=== PATIENT | male | born 1955 | race Caucasian/White ===

== ENCOUNTER 2025-03-06 12:31 | Emergency (ER) | payer MEDICARE, OTHER, SELFPAY ==
[2025-03-06] VITALS (9 sets, daily range): BP systolic 130–165; BP diastolic 73–122; BMI 33.6
--- NOTE | 2025-03-06 12:55 | ED.GENMED ---
History of Present Illness
General
Chief Complaint: Cardiac Symptoms
Time Seen by Provider: 03/06/25 12:55
History of Present Illness
History of Present Illness:
FOCUSED PAST MEDICAL HISTORY
- High blood pressure, hyperlipidemia
REVIEW OF OLD RECORDS
- I reviewed records, the patient had a colonoscopy in 2011
- The patient had a rhythm strip to Feb and at that time patient was in sinus rhythm
Note:
CHIEF COMPLAINT(S)
Atrial fibrillation detected during a pre-procedural evaluation for a cervical steroid injection.
HISTORY OF PRESENT ILLNESS
The patient is a 69-year-old male with a history of high blood pressure and hyperlipidemia, presenting to the emergency department following the detection of atrial fibrillation. The patient was initially scheduled for a steroid injection in the
neck due to chronic neck pain and radiating pain to the hands, ongoing for approximately 14 months. During the pre-procedural assessment at the surgical center, a heart rate of 150 beats per minute and blood pressure of 155/110 mmHg were noted,
leading to the postponement of the procedure. The patient was advised to contact his primary care physician and was subsequently directed to the emergency department for further evaluation.
The patient did not take his morning dose of Losartan prior to the appointment, later administering it at home at 10:50 AM, after being instructed that it was safe. He denies any concurrent coronary artery disease. Current medications include
Losartan, Atorvastatin (Lipitor), and Fluoxetine (Prozac). The patient has no history of chest pain, pressure, palpitations, or other acute cardiac symptoms.
PAST MEDICAL AND SURGICAL HISTORY
The patient has a history of hypertension and hyperlipidemia; however, no past surgeries were discussed.
PHYSICAL EXAM
- General: Well appearing in no distress
- HEENT: Moist oral mucosa
- Cardiovascular: No murmurs, tachycardic heart rate, irregular rhythm, No chest wall tenderness
- Pulmonary: No respiratory distress, breath sounds are clear and equal
- Abdomen: Soft with no peritoneal signs, no tenderness
- Neurologic: Excellent strength all extremities, no coordination deficits
- Psychiatric: Appropriate mental status, normal insight and judgement
- Extremities: Nontender, no edema, moves all extremities equally
- Skin: No rash, no lesions
CHRONIC MEDICAL CONDITIONS SIGNIFICANTLY AFFECTING CARE
- Hypertension
- Hyperlipidemia
PLAN
1. Initiate anticoagulation therapy to mitigate the risk of stroke related to atrial fibrillation.
2. Consider initiation of a beta-joanna to control heart rate.
3. Consult with a steel fitter for further cardiac evaluation and management.
4. Conduct blood tests as part of the preliminary assessment, although immediate implication on management is expected to be minimal.
5. Reschedule the cervical steroid injection procedure if necessary, after addressing the acute cardiac issue.
6. Start w/ CCB bolus/drip
DIFFERENTIAL DIAGNOSIS
The Differential Diagnosis includes, in no particular order and is not limited to:
1. Atrial fibrillation
2. Atrial flutter
3. Paroxysmal supraventricular tachycardia
4. Hypertensive heart disease
5. Heart failure
6. Coronary artery disease
7. Thyrotoxicosis
8. Pulmonary embolism
9. Valvular heart disease
10. Alcohol-induced arrhythmia
RADIOLOGY
- Did not order x-ray as the patient has no symptoms
EKG
- A-flutter with variable rate, ventricular rate 136, inferior Q waves, no old to compare
LABS
- CBC unremarkable other than hemoglobin of 12.8, chemistries unremarkable, TSH normal
UPDATE
-SUMMARY OF ENCOUNTER
The patient, a 69-year-old male with a history of hypertension and hyperlipidemia, presented to the emergency department after atrial fibrillation was detected during a pre-procedural evaluation. The heart rate was found to be highly variable,
currently controlled by an intravenous medication drip. The patient experienced flushing but no acute distress was reported. A conversation with the hospitalist was initiated to discuss potential admission for further monitoring and management due
to the atrial flutter.
MANAGEMENT OF THE PATIENTS CARE WAS DISCUSSED WITH
A discussion was initiated with the hospitalist regarding the potential for admitting the patient for overnight monitoring.
PLAN
1. Continue monitoring heart rate and rhythm, ensuring stability.
2. Coordinate with hospitalist for admission to facilitate closer observation.
3. Arrange for CPAP access if admitted, given the patients previous need for nighttime use and its possible impact on cardiac stress.
4. Discuss settings and further respiratory support requirements with the pulmonology service if needed.
5. Evaluate and manage any further cardiovascular symptoms, including facial flushing.
6. Ensure communication with the patients family about their condition and plan of care.
MEDICAL DECISION MAKING
- Number and Complexity of Problems Addressed: Chronic conditions affecting care include hypertension and hyperlipidemia. Differential diagnosis considers atrial fibrillation, atrial flutter, and potential cardiac complications.
- Data:
- Category 3: Discussion of management with the hospitalist regarding the potential admission for ongoing monitoring and management of atrial flutter.
-Risk: Hospital admission is considered due to the risk associated with atrial flutter and the variability of the patients condition, requiring further observation and management.
While in ED, rates were as low as 70s but then went back up into the 120s range. However he remained asymptomatic. Dr. Espinoza evaluated the patient in the ED and recommended discharge. I sent a prescription for both Cardizem and Eliquis to his
pharmacy. Will also give a dose of oral Cardizem 180 mg now as his rate started to increase again but again remains asymptomatic.
Phy Exam
Physical Exam
Physical Exam:
See HPI
Scores
[id number] Score for Afib Stroke Risk
Age in Years (65=0, 65-74=1, >/=75=2): 65-74
Sex (Female=+1): Male
Congestive Heart Failure History (Yes=+1): No
Hypertension History (Yes=+1): Yes
Stroke/TIA/Thromboembolism History (Yes=+2): No
Vascular Disease History (Yes=+1): No
Diabetes Mellitus (Yes=+1): No
Score: 2
Anticoagulation Recommendations: Recommend anticoagulation (as validated in nonvalvular fib)
Course
Orders/Labs/Results
Orders:
Orders
03/06/25 12:33
EKG [Electrocardiogram (*1)] Urgent
Reason for Study: Chest Pain
EKG- Treatment ONCE
03/06/25 13:04
Diltiazem HCl [Cardizem] 10 mg IV NOW STA
03/06/25 13:07
Complete Blood Count/With Diff Urgent
Comprehensive Metabolic Panel Urgent
Magnesium Urgent
TSH Reflex To Free T4 Urgent
03/06/25 13:15
Diltiazem 125 mg/125 ml Nss [Cardizem] 125 mg in 125 ml IV PER PROTOCOL
Initial dose in mg/hr, then titrate:: 5
Titrate to keep:: Heart rate 80-100 bpm
Titrate by mg/hr:: 5 mg/hr
Frequency of titrations (minutes):: 15
Maximum dose in mg/hr:: 15
03/06/25 14:55
Code Status As Directed
Resuscitation Status: Full Code
PRN Pain Medication Management As Directed
May give lesser potent ordered pain med per pt: Yes
preference::
Protocol:: Medication orders for pain may be administered in a
manner that supports deferring to patient preference
when the pt is:
- Requesting an ordered lesser potent pain medication.
Least to most potent pain medications are defined
as: acetaminophen < NSAID < tramadol < opioids
(morphine, oxycodone, hydromorphone).
- Requesting a lesser dose of the same medication IF
ORDERED.
- Requesting a less intrusive route of administration
if both routes are prescribed by the provider (PO <
IV).
03/06/25 15:09
Consult Cardiology [CARDIOLOGY CONSULT] Urgent
Consulting Provider: Luan Espnioza
Was physician already notified: Yes
03/06/25 15:15
Diltiazem Sustained Release [Cardizem Sr] 180 mg PO NOW STA
Abnormal Lab Results
03/06/25
13:07
RBC 4.30 L 10^6/uL
(4.70-6.10)
Hgb 12.8 L g/dL
(13.0-18.0)
Hct 38.3 L %
(39.0-52.0)
Absolute Monos (auto) 0.7 H 10^3/uL
(0.1-0.6)
Monocytes % 10.6 H %
(1.7-9.3)
Chloride 109 H mmol/L
(98-107)
Creatinine 0.6 L mg/dL
(0.7-1.3)
Glucose 107 H mg/dl
(70-99)
ALT 58 H U/L
(0-50)
03/06/25 13:07
03/06/25 13:07
Vital Signs
Pulse: 98
Initial and Last Documented VS:
Initial Vital Signs
Temp Pulse Resp BP Pulse Ox
36.4 C 148 20 164/118 98
03/06/25 12:35 03/06/25 12:35 03/06/25 12:35 03/06/25 12:35 03/06/25 12:35
Last Documented Vital Signs
Temp Pulse Resp BP Pulse Ox
36.6 C 98 14 146/73 99
03/06/25 13:10 03/06/25 14:30 03/06/25 14:30 03/06/25 14:30 03/06/25 14:30
*Pulse Oximetry
SaO2: 98
Oxygen Mode of Delivery: Room air
Patient hypoxic: no
*Critical Care Note
Total Time (30-74mins, 75-104mins- exclusive of procedures): Not Applicable
ED Attending Note
-
Portions of this chart may have been created with voice recognition software.� Occasional wrong word or��sound alike� substitutions may have occurred due to the inherent limitations of voice recognition software.
Discharge Plan
Departure
Patient Disposition: Home (Routine Discharge)
Date of Disposition: 03/06/25
Time of Disposition: 14:28
Patient with high blood pressure during this ER visit?: Yes
Discharge Problem:
Atrial flutter with rapid ventricular response
Instructions: Atrial fibrillation and atrial flutter - ED (DC), BLOOD PRESSURE
Prescriptions:
New
Eliquis 5 mg tablet
5 mg PO BID Qty: 60 0RF
diltiazem HCl [Cardizem CD] 180 mg capsule,extended release 24hr
180 mg PO DAILY Qty: 30 0RF
No Action
atorvastatin 10 mg tablet
10 mg PO DAILY
colesevelam [WelChol] 625 mg Tablet
625 mg PO BID
fluoxetine 20 mg tablet
20 mg PO DAILY
losartan 25 mg tablet
25 mg PO DAILY
Humira(CF) Pen 40 mg/0.4 mL pen injector kit
40 mg SC Q2W
aspirin 81 mg Tablet,Delayed Release (Dr/Ec)
81 mg PO DAILY
Referrals:
Luan Espinoza MD [Active, Cardiology]
Zach Hermosillo MD [Family Provider, Internal Medicine]
Activity Restrictions/Additional Instructions:
Dr. Espinoza said somebody from their office will call you to arrange close follow-up. I sent a prescription for both Eliquis and diltiazem to your pharmacy. Return here if worse or other concerns.
Interventions
Interventions:
*Risk Screen - Suicide Last Done: 03/06/25 12:35
*General Assessment Last Done: 03/06/25 12:35
*Neglect/Abuse Screening Last Done: 03/06/25 13:00
*ED- Fall Risk Assessment Last Done: 03/06/25 13:00
*ED COVID-19 Vaccine History Last Done: 03/06/25 13:09
*ED Influenza Vaccine History Last Done: 03/06/25 13:09
ED- Pulmonary Assessment Last Done: 03/06/25 13:29
ED- Cardiac Assessment Last Done: 03/06/25 13:29
Discharge Date and Time
Print Language: [id number]
[2025-03-06] MEDS: CARDIZEM 10 MG IV (13:17)
[2025-03-06] MEDS: CARDIZEM 125 IV (13:18)
[2025-03-06 13:25] LABS: Hematocrit 38.3 % (39.0-52.0); Hemoglobin 12.8 g/dL (13.0-18.0); Mean Corp Hgb Conc. 33.4 g/dL (33.0-37.0); Mean Corpuscular Volume 89.1 fL (80.0-94.0); Nucleated Red Blood Cells % 0 % (-); Platelet Count 151 10^3/uL (130-400); Red Cell Dist. Width 13.4 % (11.5-14.5)
[2025-03-06 13:37] LABS: ALT (SGPT) 58 U/L (0-50); AST (SGOT) 42 U/L (17-59); Albumin 4.4 g/dl (3.5-5.0); Alkaline Phosphatase 63 U/L (38-126); Blood Urea Nitrogen 13 mg/dl (9-20); Calcium 9.0 mg/dl (8.4-10.2); Carbon Dioxide 22 mmol/L (22-30); Chloride 109 mmol/L (98-107); Estimated Creatinine Clearance > 125 ml/min; Glucose 107 mg/dl (70-99); Magnesium 2.0 mg/dl (1.6-2.3); Potassium 4.2 mmol/L (3.5-5.1); Sodium 136 mmol/L (135-145); Total Protein 6.7 g/dl (6.3-8.2); eGFR > 60.00
--- NOTE | 2025-03-06 14:08 | CON.CAR ---
Addendum entered and electronically signed by Luan Espinoza MD 03/06/25 16:07:
I saw and evaluated the patient, and I provided the substantive portion of the medical decision making.
I reviewed and agree with the note by Dr Hallman and it accurately reflects our care.
I personally performed the medical decision making of the this encounter and my assessment and plan is below:
A Flutter
- asymptomatic
- would like to leave
- CITLALY DCCV either later this week or early next week
- Eliquis indefinitely
- Echo as outpatient
- 2 week f/u with BOAT DISPATCHER
Original Note:
Consultation
Consultation Request
Date/Time Consultation Requested: 03/06/2025
Date/Time Consultation Performed: 03/06/2025
Requesting Provider: Damian Song
Performing Provider: Luan Espinoza
Reason for Consultation: Atrial Flutter
Medical History
-
Chief Complaint: Atrial flutter
History of Present Illness:
Lenard is a 69-year-old male with a past medical history of hypertension, BENJAMIN (on CPAP), HLD, cervical stenosis with radiculopathy, left hip osteoarthritis status post hip replacement, Crohn's disease (on Humira), depression, hypogonadism who
presented to the emergency department from PCP for EKG showing atrial flutter.
Patient was in his usual state of health when he went to an appointment for cervical epidural injections at [facility] orthopedics this morning, he was found to have elevated blood pressure 155/118 heart rate 127. After having the patient lie
down for 15 minutes, his blood pressure remained elevated in the 150s/140s and his heart rate was 151. Procedure was held off and he was told to come to his PCP. In the PCPs office he denied any symptoms of shortness of breath, headache,
dizziness, lightheadedness, palpitations. He does endorse feelings of anxiety prior to procedures and during doctors visits which he thought this was result of. Blood pressure at the PCP was 140/110, heart rate 146. EKG done in the office showed
atrial flutter with RVR of 147.
Cardiology was consulted for new onset A-flutter
In the ED he is complaining of no acute symptoms and remains hemodynamically stable. CBC is mostly unremarkable. Chemistry is unremarkable for significant electrolyte abnormalities. Patient is on diltiazem drip.
Past Medical History
Past Medical History: Other (See HPI)
Past Surgical History: Other (Synovial cyst removal, discotomy, hernia repair, unspecified eye surgery x 2, left hip replacement)
Social History
Tobacco: Former Smoker
Alcohol: Occasional
Drug: None
Personal:
Living: With Family
Employment: Retired
Family History
Family History: Reviewed & Not Pertinent
Allergies / Home Medications
Allergy/AdvReac Type Severity Reaction Status Date / Time
No Known Allergies Allergy Unverified 03/06/25 12:36
Review of Systems
-
History Source: Patient
All other systems: Negative unless noted
Physical Exam
Vital Signs
Temp Pulse Resp BP Pulse Ox
97.9 F 116 15 149/74 93
03/06/25 13:10 03/06/25 13:30 03/06/25 13:30 03/06/25 13:30 03/06/25 13:30
Lab Results
03/06/25 13:07
03/06/25 13:07
Physical Exam
General: Well Developed, Well Nourished, No Apparent Distress and Comfortable
HEENT: Normocephalic, Anicteric, Moist Mucous Membranes and Atraumatic
Respiratory: Clear and Non Labored Respirations; Negative Wheezes, Crackles or Rhonchi
Cardiac: S1/S2 and Irregular Rhythm
Breast: N/A
GI: Soft, Non Tender, Non Distended and Normal Bowel Sounds
Musculoskeletal: No Clubbing, No Cyanosis and No Edema
Skin: Warm and Dry
Neuro: AO x 3
Psych: Calm
Impression / Plan
-
Lenard is a 69-year-old male with a past medical history of hypertension, BENJAMIN (on CPAP), HLD, cervical stenosis with radiculopathy, left hip osteoarthritis status post hip replacement, Crohn's disease (on Humira), depression, hypogonadism who
presented to the emergency department from PCP for EKG showing atrial flutter with RVR.
No prior diagnosis of Aflutter. He has hypertension but is otherwise hemodynamically stable. Discussed with patient inpatient vs. outpatient options. D/c today home with OP follow up in 2-4 weeks scheduled with our office and appointment for
CITLALY/Cardioversion in the next week
#Atrial Flutter with RVR, asymptomatic
- Stop Aspirin 81mg
- placed on aspirin as primary prevention 30 years ago, no prior history of CVA/ACS, etc.
- Start Eliquis 5mg BID
- discussed with patient side effects of Eliquis including prolonged bleeding, easy bruising, etc.
- Start Diltiazem 180mg QD
- will see for f/u in office in 2-4 weeks
- C/w weight loss and exercise efforts
- pt drinks 12-18 beers per week on average, advised to cut back or stop altogether as this can worsen cardiac arrhythmias
- Has reported increased history of alcohol consumption following of son 2 to 3 years ago, would likely benefit from continued alcohol cessation counseling in the outpatient setting/with PCP
- Advised to remain compliant with CPAP
#Essential hypertension
#Hyperlipidemia
- Continue with statin
- Continue with losartan
--- NOTE | 2025-03-06 14:33 | W.PN.UPDATE ---
Addendum entered and electronically signed by Barrett Robb MD 03/06/25 16:56:
Patient was discharged from ER after licensing officer consult evaluation.
- Plan is to f/u at OP CBC card office
- DC'd home on PO Eliquis and PO Diltiazem. ASA was stopped.
- For OP ECHO
Original Note:
Update Note
Progress Note Update
This note serves as an addendum to the H&P by corporate intern ERICK�
Phyllis AIMEE�
HPI
69M HX HTN, HLD, BENJAMIN, CPAP HS, Crohn on Humira, Daily ETOH use ( 12 cans per week) sent from [facility] [place] for cervical EPI
- noted in rapid A Flutter with VR 140s
- Hypertensive.
- asymptomatic from a cardiac standpoint
- [id number] is 2
- No Account Manager Employee Benefits
PHX: see above
Relevant VS
03/06/25
13:10 03/06/25
13:15 03/06/25
14:30
Temp 97.9 F
Pulse 146 146 98
Resp Rate 18
Blood pressure 164/112
SaO2 96
Oxygen Mode of Delivery Room air
PE
Gen: BMI 31 Class I Obesity
HEENT:anicteric
Neck: supple
Lungs:CTA
Cor:Irregular and fast, No mumur
Abdomen:�soft, POS BS.
TRAIN CLERK: AAO3
MS:no edema
Psych: appropriate
Relevant Data
03/06/25
13:07
WBC 6.7
Hgb 12.8 L
Plt Count 151
Creatinine 0.6 L
eGFR > 60.00
AST 42
ALT 58 H
TSH (Reflex) 1.62
EKG
ATRIAL FLUTTER WITH VARIABLE A-V BLOCK
INFERIOR INFARCT , AGE UNDETERMINED
ABNORMAL ECG
NO PREVIOUS ECGS AVAILABLE
Confirmed by CLEMENTE PHAM MD ([id number]) on 03/06/2025 12:47:35 PM
NO prior hospitalist admission:
ASSESSMENT & PLAN
Pending Rx reconciliation
Asymptomatic rapid A Flutter
- [id number] is 2
- No Account Manager Employee Benefits
- Rate control: Diltiazem gtt to titrate
- AC: defer to Account Manager Employee Benefits
- ECHO
- CBC Card consulted
Hypertensive
Benign HTN
- Pending Rx reconciliation
- f/u BP in response to Diltiazem gtt
HLD
- Pending Rx reconciliation
BENJAMIN
- on RAMP AGENT CPAP HS
Daily ETOH use ( 12 cans per week)
- no prior HX ETOH WDS
- encourage cessation of ETOH to cut down significantly
HX Cronhs dz on Humira
DVT Px: Heparin gtt
Full code
IVU or IMU
--- NOTE | 2025-03-06 14:33 | HPS.HSE ---
Family Physician
-
Family Physician: Zach Hermosillo
Chief Complaint
-
a flutter
History of Present Illness
69-year-old male with a history of high blood pressure and hyperlipidemia, presenting to the emergency department following the detection of atrial fibrillation. The patient was initially scheduled for a steroid injection in the neck due to chronic
neck pain and radiating pain to the hands, ongoing for approximately 14 months. During the pre-procedural assessment at the surgical center, a heart rate of 150 beats per minute and blood pressure of 155/110 mmHg were noted, leading to the
postponement of the procedure. The patient was advised to contact his primary care physician and was subsequently directed to the emergency department for further evaluation. Patient denied chest pain, palpitation, short of breath. Patient denied
any headache, or syncope or dizzy or lightheaded. Patient denied any abdominal pain, nausea, vomiting or diarrhea. Patient denied dysuria hematuria.
Upon arrival patient was noted in a flutter. Initiated on Cardizem drip
Medical History
Past Medical History
Past Medical History: Reports Other
Additional Past Medical History:
Hyperlipidemia, obstructive sleep apnea, chron's disease, depression, hypertension
Past Surgical History: Reports Other
Additional Past Surgical History:
Disc ectomy for herniated L5, inguinal hernia, left UMA, basal cell removal on right ear, ocular lens replacement, left hip replacement, retina surgery
Social History
Tobacco: Non-smoker
Alcohol: Occasional
Drug: None
Personal:
Living: With Family
Family History
Family History: Not pertinent
Allergies / Home Medications
Allergies reflects when Allergies were last updated in [employer].
Home Medications with original date entered in [employer]
Allergy/Medication List:
Allergies
Allergy/AdvReac Type Severity Reaction Status Date / Time
No Known Allergies Allergy Unverified 03/06/25 12:36
Review of Systems
-
Constitutional: Reports No Symptoms
EENT: Reports No Symptoms
Respiratory: Reports No Symptoms
Cardiac: Reports No Symptoms
Abdomen/GI: Reports No Symptoms
: Reports No Symptoms
Musculoskeletal: Reports No Symptoms
Skin: Reports No Symptoms
Neurological: Reports No Symptoms
Endocrine: Reports No Symptoms
Hematologic/Lymphatic: Reports No Symptoms
Psych: Reports No Symptoms
Physical Exam
Vital Signs
Vital Signs
Temp Pulse Resp BP Pulse Ox
97.9 F 98 15 149/74 93
03/06/25 13:10 03/06/25 14:30 03/06/25 13:30 03/06/25 13:30 03/06/25 13:30
Physical Exam
General: Well Developed, Well Nourished and No Apparent Distress
HEENT: NormoCephalic, Moist mucous membranes and Atraumatic
Respiratory: Clear
Cardiac: Irregular Rhythm and Tachycardia; No Murmur or Rub
GI: Soft, Non Tender, Non Distended and Normal Bowel Sounds; No Organomegaly
Rectal: Deferred by Provider
Musculoskeletal: No Clubbing, No Cyanosis and No Edema
Skin: No Rash
Neuro: AO x 3 and Nonfocal/grossly intact
Psych: Calm
Laboratory Results
-
03/06/25 13:07
03/06/25 13:07
Laboratory Results
Total Bilirubin 0.6 mg/dl (0.2-1.3) 03/06/25 13:07
AST 42 U/L (17-59) 03/06/25 13:07
ALT 58 U/L (0-50) H 03/06/25 13:07
Alkaline Phosphatase 63 U/L (38-126) 03/06/25 13:07
Data Reviewed
-
Lab Data: Labs Reviewed by me
Impression/Plan
-
# Rapidly a flutter
- Cardizem drip continued
- Obtain echocardiogram
- Cardiology consulted
# Essential hypertension
## Hyperlipidemia
- Cozaar,statin welchol continue with hold parameters
# Depression
- Fluoxetine continued
# Chron's disease
-on Humira
# DVT prophylaxis
- Lovenox
# CODE STATUS
- Full code
[2025-03-06] MEDS: CARDIZEM CD 180 MG PO (15:49)
== END 2025-03-06 15:57 | disposition home or self-care (01) ==
LOC: EMR 12:31
PROVIDERS: CONSULT PHYSICIAN Internal Medicine Cardiovascular Disease; EMERGENCY PHYSICIAN Emergency Medicine; FAMILY PHYSICIAN Internal Medicine
DX: I48.92 Unspecified atrial flutter (principal); E78.5 Hyperlipidemia, unspecified; G47.33 Obstructive sleep apnea (adult) (pediatric); I10 Essential (primary) hypertension; Z87.891 Personal history of nicotine dependence; F32.A Depression, unspecified; K50.90 Crohn's disease, unspecified, without complications; Z79.899 Other long term (current) drug therapy
CPT/HCPCS: 96374; 99284; 80053; 83735; 84443; 85025; 93005

== ENCOUNTER 2025-03-09 09:28 | Day surgery (SDC) | payer MEDICARE, OTHER, SELFPAY ==
--- NOTE | 2025-03-09 11:26 | ITS.CL.CARDI ---
Web Production Manager - Cardioversion
Cardioversion
Procedure Report:
Procedure: CITLALY-guided electrical cardioversion
Pre-operative diagnosis: Atrial Flutter
Post-operative diagnosis: Atrial Flutter status post DC cardioversion to sinus rhythm
Anesthesia: MAC
Attending Physician: Twila Whitman MD
Procedure Description: The patient was brought to the electrophysiology laboratory in the fasting state. Informed consent was obtained from the patient prior to the start of the procedure. Adherence to anticoagulation was confirmed. Electrodes were
placed on the patient and connected to an external defibrillator. Monitoring of blood pressure, ECG tracings, and pulse oximetry was initiated. The pads were applied to the patient in the anterior and posterior positions. The patient was sedated by
the anesthesiologist. A CITLALY (reported separately) was performed prior to the cardioversion. No left atrial or left atrial appendage thrombus was seen. After the CITLALY probe was removed, a 200 joule biphasic synchronized shock was delivered to the
patient under MAC anesthesia. Sinus rhythm was successfully restored. The patient recovered uneventfully from MAC anesthesia. There were no immediate post-procedure complications. The patient left the lab in good condition. The attending physician
was present throughout the entire procedure.
Impression: Successful CITLALY-guided direct current cardioversion with yazidi of sinus rhythm after one 200 joule biphasic synchronized shock.
== END 2025-03-09 12:00 | disposition home or self-care (01) ==
LOC: CATH 09:28
PROVIDERS: ATTENDING PHYSICIAN Internal Medicine Cardiovascular Disease; FAMILY PHYSICIAN Internal Medicine; OTHER PHYSICIAN Internal Medicine Cardiovascular Disease
DX: I48.92 Unspecified atrial flutter (principal); Q21.12 Patent foramen ovale; I49.1 Atrial premature depolarization
CPT/HCPCS: 93312; 93325; 93320; 92960; 93005

== ENCOUNTER → 2025-04-24 12:10 | Outpatient (REF) | payer MEDICARE, OTHER, SELFPAY ==
[2025-04-24 13:30] LABS: Hematocrit 42.5 % (39.0-52.0); Hemoglobin 14.5 g/dL (13.0-18.0); Mean Corp Hgb Conc. 34.1 g/dL (33.0-37.0); Mean Corpuscular Volume 88.4 fL (80.0-94.0); Nucleated Red Blood Cells % 0 % (-); Platelet Count 185 10^3/uL (130-400); Red Cell Dist. Width 13.0 % (11.5-14.5)
[2025-04-24 14:05] LABS: ALT (SGPT) 41 U/L (0-50); AST (SGOT) 33 U/L (17-59); Albumin 4.8 g/dl (3.5-5.0); Alkaline Phosphatase 53 U/L (38-126); Blood Urea Nitrogen 10 mg/dl (9-20); Calcium 9.8 mg/dl (8.4-10.2); Carbon Dioxide 26 mmol/L (22-30); Chloride 104 mmol/L (98-107); Glucose 95 mg/dl (70-99); Potassium 4.3 mmol/L (3.5-5.1); Sodium 136 mmol/L (135-145); Total Protein 7.5 g/dl (6.3-8.2); eGFR > 60.00
== END ==
LOC: SDSPAT 12:10
PROVIDERS: ATTENDING PHYSICIAN Internal Medicine Cardiovascular Disease; FAMILY PHYSICIAN Family Medicine; OTHER PHYSICIAN Internal Medicine Cardiovascular Disease
DX: I48.92 Unspecified atrial flutter (principal)
CPT/HCPCS: 36415; 80053; 85025; 86850; 86900; 86901

== ENCOUNTER 2025-04-30 07:56 | Day surgery (SDC) | payer MEDICARE, OTHER, SELFPAY ==
[2025-04-24 13:01] VITALS: BMI 33.6
[2025-04-30] VITALS (18 sets, daily range): BP systolic 78–144; BP diastolic 51–100
[2025-04-30 11:14] LABS: ACT-LR - POC 227 Seconds (116-155)
[2025-04-30 11:36] LABS: ACT-LR - POC 297 Seconds (116-155)
--- NOTE | 2025-04-30 11:47 | ITS.CL.ABL ---
[facility] - Ablation
Ablation
Procedure Report:
AFIB / A flutter ablation:
Mr. Thompson is a very pleasant 69 yr old gentleman with medical history significant for symptomatic paroxysmal atrial fibrillation and atrial flutter is here in the EP lab for atrial fibrillation / flutter ablation
Date of Procedure:
04/30/2025
Indications:
Symptomatic persistent atrial fibrillation / atrial flutter
Pre-Operative Diagnosis:
Persistent atrial fibrillation / atrial flutter
Post-Operative Diagnosis:
Persistent atrial fibrillation / atrial flutter
Procedure Performed:
Atrial fibrillation ablation with wide area circumferential ablation (WACA) approach for pulmonary vein isolation
Atrial flutter ablation with cavo-tricuspid isthmus line block formation
Performing Physician:
Troy Weems MD
Assistants:
EP staff
Anesthesia:
See anesthesia records
Detailed Description of the Procedure:
Written informed consent was obtained from the patient after a full explanation of the risks and benefits of the procedure including the risks of sedation and anesthesia.
The patient was brought to the electrophysiology laboratory in stable condition in fasting state. Continuous electrocardiographic and hemodynamic monitoring was initiated.
The initial rhythm was atrial flutter.
The procedure site was meticulously prepared with surgical scrub and allowed to dry with no pooling. Sterile draping was applied to cover the procedure site. The image intensifier was draped with sterile bag and positioned over the patient. After
infusion of local anesthetic, vascular access was obtained under ultrasound guidance and sheaths were placed over guide wire as detailed below.
The images of the ultrasound of the femoral vessels were stored in patient chart.
Sheath and Catheter Placement:
In the right femoral vein, an 8-Bhutanese sheath was placed under ultrasound guidance for use during the ablation procedure. And mapping catheter was intermittently placed in the high right atrium, right ventricle, left atrium and left ventricle. In
the left femoral vein, a 9-Fr long sheath was placed for use during intracardiac echo procedure.
The sheaths were upgraded as needed during the case. Intracardiac catheters were positioned using direct fluoroscopic guidance. ICE catheter was placed in RA. The following catheters / sheaths were placed
Sheaths:
Agilis sheath in right femoral vein upgraded from 8Fr in right femoral vein
9Fr in left femoral vein
7Fr in right femoral vein
Catheters:
The Affera Sphere 9 catheter -bidirectional D/F - at locations of HRA, RV, LA and LV.
ICE catheter -AccuNav - at locations of RA, SVC, and RV.
Bard decapolar catheter � RA and CS
Heparin was initiated after the access was obtained.
Intracardiac ECHO:
An 8-Bhutanese AcuNav intracardiac ECHO (ICE) probe was advanced through the 9-Bhutanese sheath in the left femoral vein into the right atrium under fluoroscopic and ICE ultrasound image guidance and a baseline ECHO study was performed. The left atrial
size was dilated. There was trace tricuspid regurgitation. The aortic valve was grossly normal. There was normal left ventricular size and function. There is a trace pericardial effusion. The PRANAY has baseline normal velocities. The pulmonary had
good flow identified.
During the procedure, ICE was used for monitoring of complications, guidance of trans-septal puncture, monitor the catheter position and tracking ablation lesions. No change in the pericardial space noted throughout the procedure.
Electroanatomic mapping of the right atrium:
A J-tipped guidewire was advanced through the 8-Bhutanese sheath in the right femoral vein into the superior vena cava under fluoroscopic and ICE guidance. The 8-Bhutanese sheath was exchanged for an Agilis sheath which was advanced into the superior vena
cava.
Using the Sphere 9 Affera catheter advanced through Agilis sheath into the right atrium, an electroanatomic map (EAM) of the right atrium was created using the [employer] mapping system with [employer] software mapping system.
There was borderline long HV conduction noted at baseline at 45 ms.
Ablation # 1: Typical Atrial Flutter Ablation:
The flutter was mapped and was noted concentric in the CS. The RA was mapped in atrial flutter that showed typical clock gonsales CTI dependent atrial flutter - CL of 240 ms.
The CTI ablation was done using radiofrequency with Affera sphere -9 ablation, open irrigation, force-sensing bidirectional ablation catheter in the cavotricuspid isthmus from the tricuspid annulus to the IVC ridge.
The flutter terminated into sinus rhythm with ablation.
Once the ablation catheter reach near the IVC, the ablation energy was changed to pulsefield.
-Bidirectional block was confirmed across the CTI line with differential pacing.
-Double potentials were spaced greater than 98 msec apart.
-The conduction time across the CTI line from proximal CS pacing was 180 msec.
-EAM of the right atrium was obtained with coronary sinus pacing and showed a line of block at the CTI.
-The time interval just lateral to the ablation lesions was 180 msec and the lateral wall was 112 msec
- All these maneuvers confirmed the block at the CTI line.
- Post ablation HV interval was unchanged at 45msec
Then attention was given to atrial fibrillation ablation.
Trans-septal Puncture:
Heparin was initiated and infused to maintain appropriate ACT. A J-tipped guidewire was advanced through into the superior vena cava under fluoroscopic and ICE guidance. The Agilis sheath was advanced into the superior vena cava. An [employer]
transseptal access system was utilized to perform the trans-septal puncture. The apparatus was withdrawn until it was in contact with the fossa ovalis. The position was adjusted based on fluoroscopy and ultrasound images from ICE. Under
fluoroscopic, hemodynamic and ICE ultrasound guidance, left atrium was cannulated by advancing the needle. Once atrial septum was cannulated, the needle was pulled back and the guide wire was advanced through the needle into the left atrium. The
guide wire was advanced into the left superior pulmonary vein. Both the sheath and the dilator was advanced into the left atrium. The dilator with the needle was withdrawn. Blood was aspirated from the Agilis sheath and arterial blood confirmed. The
sheath was flushed. Saline injection noted into the left atrium on ICE. The waveform of the LA pressure was recorded. The mapping catheter was advanced in the Agilis sheath into the left pulmonary vein.
3D Electroanatomic Mapping:
Using the Sphere 9 Affera catheter advanced through Agilis sheath into the left atrium, an electroanatomic map (EAM) of the left atrium was created using [employer] mapping system with Prism-1 software. The map was used for localization of catheter
position and tacking of ablation lesions. The EAM of the left atrium showed a total of 3 PVs with a left common and the two right sided pulmonary veins with all electrically connected to the body the LA. It showed no significant scar on the
posterior wall of the LA. The LA was dilated in size.
Following the EAM, preparation were made for ablation.
Ablation:
Ablation # 2: Pulmonary vein Isolation:
Pulsed field ablation was performed using an open irrigation, bidirectional, contact sensing, dual energy ablation catheter ([place] sphere -9) by completing the circumferential lesions around the left and right pulmonary veins achieving pulmonary
vein isolation.
Confirmation of the PVI and bidirectional block:
Following achievement of entrance block at the pulmonary veins, pacing from the Sphere 9 affera catheter in each of the four veins at 20 milliamps for 4 milliseconds showed entrance and exit block.
The LA was mapped with The [employer] mapping system with Prism-1 software in sinus rhythm confirming the line of block at the ablation lesions lines.
EP study:
Sinus Node Function: The sinus node functions are within acceptable normal range.
Atrioventricular Lary Function: Post ablation HV interval was unchanged at 45 msec
Procedure End
ICE study was done again that showed no epicardial accumulation. No complications noted.
Following the completion of the EP study, catheters were removed. Protamine 30 mg was given at the end of the procedure and ACT was checked repeatedly. The sheaths were removed and hemostasis achieved with Figure of 8 suture and manual compression
after acceptable ACT is achieved.
Left atrial Pressure:
Pre-Procedure: Mean LA pressure was 21mmHg
Post-Procedure: Mean LA pressure was 23mmHg
Post-Procedure: Mean RA pressure was 17mmHg
Estimated Blood loss:
<10 cc
Specimens Removed:
None.
Implants / Devices:
None
Urine output:
None
Packs / Drains/ Tubes:
None
Instrument / Sponge Count Correct:
Yes
Complications of the Procedure:
None
Condition of Patient at Time of Transfer:
Hemodynamically stable with no neurological or vascular compromise.
Summary:
Successful atrial fibrillation ablation with circumferential bidirectional line of block at pulmonary venin antra (Pulmonary vein isolation), atrial flutter ablation with cavo-tricuspid isthmus line block formation.
Figures from the Procedure:
Figure 1: The electroanatomic mapping (EAM) of the left atrium with bipolar voltage (purple indicates normal electrical activity with red as no myocardial muscle electric activity indicating a line of block or scar.
[2025-04-30] MEDS: TYLENOL 650 MG PO (12:38)
[2025-04-30] MEDS: TORADOL 15 MG IV (13:11)
--- NOTE | 2025-04-30 16:12 | W.PN.UPDATE ---
Update Note
Progress Note Update
Pt seen post PFA. Right groin site without ht/bleeding, oob ambulating, urinating without difficulty. Post EKG NSR 75, no acute changes. Resume eliquis tonight at usual time. Complained of some right arm/hand/finger numbness and pain in immediate
recovery- states he has a pinched nerve in his neck and this is not unusual. Modest relief from toradol. Followup at [facility] as scheduled. Home today if groin site/tele remain stable,
== END 2025-04-30 16:24 | disposition home or self-care (01) ==
LOC: CATH 07:56
PROVIDERS: ATTENDING PHYSICIAN Internal Medicine Cardiovascular Disease; FAMILY PHYSICIAN Family Medicine; OTHER PHYSICIAN Internal Medicine Cardiovascular Disease
DX: I48.19 Other persistent atrial fibrillation (principal); I48.92 Unspecified atrial flutter; Z79.899 Other long term (current) drug therapy; Z79.01 Long term (current) use of anticoagulants; I10 Essential (primary) hypertension; G47.33 Obstructive sleep apnea (adult) (pediatric); E78.5 Hyperlipidemia, unspecified; K50.90 Crohn's disease, unspecified, without complications
CPT/HCPCS: C1733; C1769; C1894; C1730; C1766; C1892; C1759; 85347; 86900; 86901; 93005; 93655; 93656

== ENCOUNTER → 2025-05-16 07:49 | Outpatient (REF) | payer MEDICARE, OTHER, SELFPAY | LOC: RAD 07:49 | PROVIDERS: ATTENDING PHYSICIAN Family Medicine | DX: Z13.6 Encounter for screening for cardiovascular disorders (principal); Z87.891 Personal history of nicotine dependence | CPT/HCPCS: 76770 ==